=== PATIENT | male | born 1945 | race Hispanic/Latino ===

== ENCOUNTER → 2017-09-11 | Day surgery (SDC) | payer MEDICARE ==
[2017-09-06 12:08] LABS: BASOPHILS # (AUTO) 0.1 (0.0-0.1); EOSINOPHILS # (AUTO) 0.3 (0.0-0.4); EOSINOPHILS % 3.4 % (0.0-6.0); LYMPHOCYTES # (AUTO) 2.5 (1.0-3.2); LYMPHOCYTES % 33.1 % (18.0-39.1); MEAN CORPUSCULAR HEMOGLOBIN 31.5 pg (28-32); MEAN CORPUSCULAR VOLUME 92.8 fL (81-99); MONOCYTES # (AUTO) 0.7 (0.2-0.8); MONOCYTES % 8.6 % (4.4-11.3); NEUTROPHILS # (AUTO) 4.1 (2.1-6.9); NEUTROPHILS % 53.8 % (38.7-80.0); PLATELET COUNT 234 x10e3/uL (140-360); RED BLOOD COUNT 5.39 x10e6/uL (4.3-5.7); RED CELL DISTRIBUTION WIDTH 13.1 % (11.7-14.4)
[2017-09-06 12:26] LABS: ANION GAP 16.2 mmol/L (8-16); BLOOD UREA NITROGEN 15 mg/dL (7-26); BUN/CREATININE RATIO 16 (6-25); CALCIUM 9.2 mg/dL (8.4-10.2); CARBON DIOXIDE 22 mmol/L (22-29); CHLORIDE 102 mmol/L (98-107); CREATININE, SERUM 0.92 mg/dL (0.72-1.25); EST GLOMERULAR FILTRATION RATE > 60 ML/MIN (60-); GLUCOSE 101 mg/dL (74-118); POTASSIUM 4.2 mmol/L (3.5-5.1); SODIUM 136 mmol/L (136-145)
--- NOTE | 2017-09-06 13:09 | Diagnostic Imaging Report ---
PROCEDURE: Frontal and lateral views of the chest. COMPARISON: 12/19/09 INDICATIONS: PREOPERATIVE CHEST XRAY FOR RIGHT ARM SURGERY FINDINGS: Lines/tubes: None. Lungs: Low lung volumes. There is no evidence of pneumonia or pulmonary edema. Pleura: There is no pleural effusion or pneumothorax. Heart and mediastinum: The heart and the mediastinum are normal. Prominent cardiac fat-pad. Bones: No acute bony abnormality. Degenerative changes of thoracic spine. IMPRESSION: 1. No acute cardiopulmonary disease. Dictated by: Aureliano Plata M.D. on 09/06/2017 at 13:18 Electronically approved by: Aureliano Plata M.D. on 09/06/2017 at 13:18
[~2017-09-11] MED LIST: BUPIVACAINE 0.25% 30ML SDV INJ ONE; CYMBALTA30 MG PO; DEXAMETHASONE SOD PHOS INJ 4 MG/ML VIAL ONE; DIOVAN160 MG PO; FENTANYL CITRATE/PF 100MCG/2 ML INJ ONE; FLOMAX0.4 MG PO; HYDROCHLOROTHIA25 MG PO; LIDOCAINE HCL 1% 30ML-PF VIAL ONE; LIDOCAINE HCL 2% LOCAL INJ 5 ML SDV VIAL INJ ONE; ONDANSETRON HCL INJ 2 MG/ML VIAL ONE; PROPOFOL IV EMULSION 10 MG/ML 20 ML VIAL ONE; SEVOFLURANE INHAL SOLN 250 ML PEN BTL ONE; XARELTO20 MG PO
--- OUTSIDE RECORDS SUMMARY | 2017-09-11 07:04 | XMS REPORT ---
Author Author [facility] Address Unknown Phone Unavailable Care Team Providers Care Dispensing Optician Name Role Phone JAZIEL CARBAJAL Unavailable Unavailable Problems This patient has no known problems. Allergies, Adverse Reactions, Alerts This patient has no known allergies or adverse reactions. Medications This patient has no known medications. Results Test Description Test Time Test Comments Text Results Atomic Results Result Comments CHEST 2 VIEWS [place] [address] Patient Name: FÉLIX ROSARIO MR #: [id number] : 1945 Age/Sex: 72/M Req #: [id number] Adm Physician: Ordered by: JAZIEL CARBAJAL MD Report #: [id number] Location: OR Room/Bed: Procedure: [id number] DX/CHEST 2 VIEWS Exam Date: 09/06/17 Exam Time: 1245 REPORT STATUS: Signed PROCEDURE: Frontal and lateral views of the chest. COMPARISON: 12/19/09 INDICATIONS: PREOPERATIVE CHEST XRAY FOR RIGHT ARM SURGERY FINDINGS: Lines/tubes: None. Lungs : Low lung volumes. There is no evidence of pneumonia or pulmonary edema. Pleura: There is no pleural effusion or pneumothorax. Heart and mediastinum: The heart and the mediastinum are normal. Prominent cardiac fat -pad. Bones: No acute bony abnormality. Degenerative changes of thoracic spine. IMPRESSION: 1. No acute cardiopulmonary disease. Dictated by: Aureliano Plata M.D. on 09/06/2017 at 13:18 Electronically approved by: Aureliano Plata M.D. on 09/06/2017 at 13:18 Dictated By: AURELIANO PLATA MD [id number] COPY TO: JAZIEL CARBAJAL MD
--- NOTE | 2017-09-11 10:17 | Operative Report ---
DATE OF PROCEDURE: September 11, 2017 PREOPERATIVE DIAGNOSIS: Mass of the right upper arm. POSTOPERATIVE DIAGNOSIS: Mass of the right upper arm. OPERATION PERFORMED: Excision of mass of right upper arm. ANESTHESIA: General. COMPLICATIONS: None. ESTIMATED BLOOD LOSS: Minimal. DESCRIPTION OF PROCEDURE: With the patient lying in bed in the supine position under good general anesthesia, the right arm was prepped with Betadine solution and draped in the usual manner. The area overlying the mass on the lateral aspect of the right midupper arm was then infiltrated with 0.25% Marcaine solution. An incision was made. It was carried down through the subcutaneous tissue and through the superficial fascia. Immediately, a lipomatous type mass was encountered, which was slowly and carefully from all of the surrounding structures. The mass was stuck to the muscle underneath. This was from the muscle and completely resected, and sent for pathological examination. The whole area was thoroughly irrigated. Perfect hemostasis was ascertained. Subcutaneous tissue was then reapproximated with interrupted sutures of 3-0 Vicryl, and the skin was closed with interrupted vertical mattress sutures of 3-0 silk. A dressing was applied. The sponge, lap and needle count was correct. The patient tolerated the procedure well, and returned to the recovery room in stable condition. Job#: [id number] NICO
== END | disposition home or self-care (01) ==
LOC: OR 07:01
PROVIDERS: ATTEND Surgery
DX: D17.79 Benign lipomatous neoplasm of other sites (principal); I10 Essential (primary) hypertension; E66.01 Morbid (severe) obesity due to excess calories; Z01.810 Encounter for preprocedural cardiovascular examination; Z01.812 Encounter for preprocedural laboratory examination; Z01.818 Encounter for other preprocedural examination; Z79.02 Long term (current) use of antithrombotics/antiplatelets; Z86.718 Personal history of other venous thrombosis and embolism
CPT/HCPCS: 24076; 36415; 71046; 80048; 85025; 88304; 93005; J1100; J2001; J2405

== ENCOUNTER → 2018-10-15 | Outpatient (CLI) | payer MEDICARE ==
[~2018-10-15] MED LIST changes: +ACETAMINOPHEN 1000 MG/100 ML IV PRN; +BACITRACIN 50,000 UNIT VIAL ONE; -BUPIVACAINE 0.25% 30ML SDV INJ ONE; +CEFAZOLIN SOD 1 GM/NS 50ML 50 ML IV SCH; +CEFAZOLIN SOD 2 GM/D5W 50ML 50 ML IV ONE; -DEXAMETHASONE SOD PHOS INJ 4 MG/ML VIAL ONE; +DIPHENHYDRAMINE HCL INJ 50 MG/ML VIAL IM/IV PRN; -FENTANYL CITRATE/PF 100MCG/2 ML INJ ONE; +HYDROMORPHONE 0.2MG/ML-SOD CHL 30ML PCA SYRINGE IV PRN; +LEVOCETIRIZINE D5 MG PO; -LIDOCAINE HCL 1% 30ML-PF VIAL ONE; -LIDOCAINE HCL 2% LOCAL INJ 5 ML SDV VIAL INJ ONE; +NALOXONE HCL INJ 0.4 MG/ML AMP IV PRN; -ONDANSETRON HCL INJ 2 MG/ML VIAL ONE; +ONDANSETRON HCL INJ 2MG/ML 2ML 2 MG/ML VIAL IV PRN; +PANTOPRAZOLE SO40 MG PO; -PROPOFOL IV EMULSION 10 MG/ML 20 ML VIAL ONE; +RIVAROXABAN 10 MG TABLET PO SCH; -SEVOFLURANE INHAL SOLN 250 ML PEN BTL ONE; +SODIUM CHLORIDE 0.9% 1000ML 1,000 ML IV SCH
[2018-10-15 11:03] LABS: BASOPHILS % 0.6 % (0.0-1.0); EOSINOPHILS # (AUTO) 0.2 (0.0-0.4); EOSINOPHILS % 3.2 % (0.0-6.0); HEMATOCRIT 48.7 % (38.2-49.6); HEMOGLOBIN 16.5 g/dL (14.0-18.0); LYMPHOCYTES # (AUTO) 2.3 (1.0-3.2); MEAN CORPUSCULAR HEMOGLOBIN 30.8 pg (28-32); MEAN CORPUSCULAR HGB CONC 33.9 g/dL (31-35); MONOCYTES # (AUTO) 0.5 (0.2-0.8); MONOCYTES % 8.2 % (4.4-11.3); NEUTROPHILS # (AUTO) 3.4 (2.1-6.9); NEUTROPHILS % 51.8 % (38.7-80.0); PLATELET COUNT 225 x10e3/uL (140-360); RED BLOOD COUNT 5.35 x10e6/uL (4.3-5.7); RED CELL DISTRIBUTION WIDTH 14.3 % (11.7-14.4)
[2018-10-15 11:18] LABS: BLOOD UREA NITROGEN 12 mg/dL (7-26); BUN/CREATININE RATIO 11 (6-25); CALCIUM 8.9 mg/dL (8.4-10.2); CARBON DIOXIDE 27 mmol/L (22-29); CHLORIDE 101 mmol/L (98-107); CREATININE, SERUM 1.09 mg/dL (0.72-1.25); EST GLOMERULAR FILTRATION RATE > 60 ML/MIN (60-); GLUCOSE 112 mg/dL (74-118); SODIUM 136 mmol/L (136-145)
[2018-10-15 12:17] LABS: BILIRUBIN,URINE NEGATIVE (NEGATIVE); CLARITY,URINE CLEAR (CLEAR); COLOR,URINE YELLOW (YELLOW); KETONES,URINE NEGATIVE (NEGATIVE); LEUKOCYTE ESTERASE ,URINE NEGATIVE (NEGATIVE); NITRITE,URINE NEGATIVE (NEGATIVE); PROTEIN,URINE DIPSTICK NEGATIVE (NEGATIVE); URINE UROBILINOGEN 0.2 mg/dL (0.2 - 1)
--- NOTE | 2018-10-15 12:32 | Diagnostic Imaging Report ---
EXAM: CHEST 2 VIEWS, PA and lateral DATE: 10/15/2018 Time stamp on exam: 11:02 AM INDICATION: Preoperative COMPARISON: None FINDINGS: LINES/TUBES: None LUNGS: Poor inspiration. Bibasilar opacities appear compatible with atelectasis. PLEURA: No effusions or pneumothorax. HEART AND MEDIASTINUM: Normal size and contour. BONES AND SOFT TISSUES: No acute findings. Degenerative changes of the spine. IMPRESSION: No acute thoracic abnormality. Signed by: Dr. Oscar Fernando DO on 10/15/2018 12:28 PM
--- OUTSIDE RECORDS SUMMARY | 2018-10-16 10:03 | XMS REPORT ---
Author Author Nigel Gonzalez Organization [employer] Address Unknown Phone Unavailable Care Team Providers Care Electron Beam Welder Name Role Phone Nigel Gonzalez CP Unavailable Allergies No Known Allergies Problems Problem Type Condition Code Onset Dates Condition Status Problem Knee pain M25.569 Active Problem Muscle spasm M62.838 Active Problem Right elbow pain M25.521 Active Problem Gluteal tendinitis, left hip M76.02 Active Problem Sciatica of left side M54.32 Active Problem Rotator cuff arthropathy M12.819 Active Problem Polyarthritis M13.0 Active Problem Osteoarthritis M19.90 Active Problem Shoulder pain, right M25.511 Active Medications No Known Medications Results No Known Results Summary Purpose [employer] Submission
--- OUTSIDE RECORDS SUMMARY | 2018-10-16 10:03 | XMS REPORT ---
Author Author Nigel Gonzalez Organization [employer] Address Unknown Phone Unavailable Care Team Providers Care Mechanical Assembly Name Role Phone Nigel Gonzalez CP Unavailable [...]
--- OUTSIDE RECORDS SUMMARY | 2018-10-16 10:03 | XMS REPORT ---
Author Author Nigel Gonzalez Organization [employer] Address Unknown Phone Unavailable Care Team Providers Care Cotton Tier Name Role Phone Nigel Gonzalez CP Unavailable [...]
--- OUTSIDE RECORDS SUMMARY | 2018-10-16 10:03 | XMS REPORT ---
Author Author Princess De Jesus [facility] [employer] Address Unknown Phone Unavailable Care Team Providers Care Truck Repair Supervisor Name Role Phone Princess De Jesus Unavailable Allergies, Adverse Reactions, Alerts Substance Reaction Event Type N.K.D.A. Info Not Available Non Drug Allergy Problems Problem Type Condition Code Onset Dates Condition Status Assessment Polyarthritis M13.0 Active Problem Knee pain M25.569 Active Problem Muscle spasm M62.838 Active Assessment Right elbow pain M25.521 Active Problem Right elbow pain M25.521 Active Problem Gluteal tendinitis, left hip M76.02 Active Problem Sciatica of left side M54.32 Active Problem Rotator cuff arthropathy M12.819 Active Problem Polyarthritis M13.0 Active Problem Osteoarthritis M19.90 Active Problem Shoulder pain, right M25.511 Active Medications Medication Code System Code Instructions Start Date End Date Status Dosage Cymbalta [facility] [address]-32 60 MG Orally Once a day Active 1 capsule Tylenol Arthritis Pain [facility] [address]-98 650 MG Orally PRN Active 2 tablets as needed Aspirin [facility] [address]-31 81 MG Orally Once a day Active 1 tablet Valsartan-Hydrochlorothiazide [facility] [address]-42 160-12.5 MG Orally Once a day Active 1 tablet Acetaminophen-Codeine [facility] [address]-26 300-60 MG Orally every 6 hrs prn for pain Active 1 tablet as needed Xarelto [facility] [address]-10 20 MG Orally Once a day Active 1 tablet with food Cyclobenzaprine HCl [facility] [address]-24 10 MG Orally PRN Active 1 tablet as needed Tamsulosin HCl [facility] [address]-05 0.4 MG Orally Active as directed Vital Signs Date/Time: January 12, 2017 BMI 34.97 Index Weight 230 lbs Height 68 in Temperature 98.6 F Cardiac Monitoring Heart Rate 78 /min Blood Pressure Diastolic 90 mm Hg Blood Pressure Systolic 118 mm Hg Results No Known Results Summary Purpose [employer] Submission
--- OUTSIDE RECORDS SUMMARY | 2018-10-16 10:03 | XMS REPORT ---
Author Author Nigel Gonzalez Organization [employer] Address Unknown Phone Unavailable Care Team Providers Care Clinical Research Monitor Name Role Phone Nigel Gonzalez CP Unavailable [...]
--- OUTSIDE RECORDS SUMMARY | 2018-10-16 10:03 | XMS REPORT ---
Author Author Nigel Gonzalez Organization [employer] Address Unknown Phone Unavailable Care Team Providers Care Medical Claims Representative Name Role Phone Nigel Gonzalez CP Unavailable [...]
--- OUTSIDE RECORDS SUMMARY | 2018-10-16 10:03 | XMS REPORT ---
Author Nigel Rea [facility] [employer] Address Unknown Phone Unavailable Care Team Providers Care Counseling Center Manager Name Role Phone Nigel Gonzalez CP Unavailable Allergies, Adverse Reactions, Alerts Substance Reaction Event Type N.K.D.A. Info Not Available Non Drug Allergy Problems Problem Type Condition Code Onset Dates Condition Status Assessment Sciatica of left side M54.32 Active Problem Knee pain M25.569 Active Problem Muscle spasm M62.838 Active Problem Right elbow pain M25.521 Active Problem Gluteal tendinitis, left hip M76.02 Active Problem Sciatica of left side M54.32 Active Problem Rotator cuff arthropathy M12.819 Active Problem Polyarthritis M13.0 Active Problem Osteoarthritis M19.90 Active Problem Shoulder pain, right M25.511 Active Medications Medication Code System Code Instructions Start Date End Date Status Dosage Aspirin [facility] [address]-38 81 MG Orally Once a day Active 1 tablet Tylenol Arthritis Pain [facility] [address]-12 650 MG Orally PRN Active 2 tablets as needed Xarelto [facility] [address]-98 20 MG Orally Once a day Active 1 tablet with food Prednisone Taper [facility] 3729-1660-05 5mg orally q am with food December 02, 2016 December 17, 2016 Active 3 tablets for 5 days, 2 tablets for 5 days and then 1 tablet for 5 days Valsartan-Hydrochlorothiazide [facility] [address]-84 160-12.5 MG Orally Once a day Active 1 tablet Cyclobenzaprine HCl [facility] [address]-52 10 MG Orally tid prn for muscle spasms December 02, 2016 January 31, 2017 Active 1 tablet as needed Cymbalta [facility] [address]-67 60 MG Orally Once a day Active 1 capsule Acetaminophen-Codeine [facility] [address]-85 300-60 MG Orally every 6 hrs prn for pain Active 1 tablet as needed Tamsulosin HCl [facility] [address]-00 0.4 MG Orally Active as directed Vital Signs Date/Time: December 02, 2016 BMI 35.35 Index Weight 225.7 lbs Height 67 in Temperature 98.6 F Cardiac Monitoring Heart Rate 80 /min Blood Pressure Diastolic 80 mm Hg Blood Pressure Systolic 124 mm Hg Results No Known Results Summary Purpose [employer] Submission
--- OUTSIDE RECORDS SUMMARY | 2018-10-16 10:03 | XMS REPORT | Continuity of Care Document ---
Author Author [facility] Address Unknown Phone Unavailable Problems Problem Status Onset Date Classification Date Reported Comments Source Muscle spasm Active Problem 01/27/2017 Corbin Gonzalez Gluteal tendinitis, left hip Active Problem 01/27/2017 Corbin Gonzalez Osteoarthritis Active Problem 01/27/2017 Corbin Gonzalez Right elbow pain Active Problem 01/27/2017 Corbin Gonzalez Polyarthritis Active Problem 01/27/2017 Corbin Gonzalez Knee pain Active Problem 01/27/2017 Corbin Gonzalez Shoulder pain, right Active Problem 01/27/2017 Corbin Guptaer Rotator cuff arthropathy Active Problem 01/27/2017 Corbin Guptaer Sciatica of left side Active Problem 01/27/2017 Corbin Gonzalez Medications Medication Details Route Status Patient Instructions Ordering Provider Order Date Source Prednisone Taper 3 tablets for 5 days, 2 tablets for 5 days and then 1 tablet for 5 days orally Active 5mg orally q am with food [place] 12/02/2016 Corbin Gonzalez Cyclobenzaprine HCl 1 tablet as needed Orally Active 10 MG Orally tid prn for muscle spasms [place] 12/02/2016 Corbin Gonzalez Acetaminophen-Codeine 1 tablet as needed Orally Active 300-60 MG Orally every 6 hrs prn for pain [place] 07/28/2016 Corbin Gonzalez Medrol Dose [place] as directed Orally Active 4mg Orally once a day [place] 07/28/2016 Corbin Gonzalez Acetaminophen-Codeine 1 tablet as needed Orally Active 300-60 MG Orally every 6 hrs prn for pain [place] Corbin Gonzalez Xarelto 1 tablet with food Orally Active 20 MG Orally Once a day [place] Corbin Gonzalez Valsartan-Hydrochlorothiazide 1 tablet Orally Active 160-12.5 MG Orally Once a day [place] Corbin Gonzalez Cymbalta 1 capsule Orally Active 60 MG Orally Once a day [place] Corbin Gonzalez Tylenol Arthritis Pain 2 tablets as needed Orally Active 650 MG Orally PRN [place] Corbin Gonzalez Aspirin 1 tablet Orally Active 81 MG Orally Once a day [place] Corbin Gonzalez Tamsulosin HCl as directed Orally Active 0.4 MG Orally [place] Corbin Gonzalez Cyclobenzaprine HCl 1 tablet as needed Orally Active 10 MG Orally PRN [place] Corbin Guptaer Allergies, Adverse Reactions, Alerts Substance Category Reaction Severity Reaction type Status Date Reported Comments Source N.K.D.A. Adverse Reaction Info Not Available Adverse Reaction Active 01/12/2017 Corbin Guptaer Immunizations Immunization Date Given Site Status Last Updated Comments Source Results Order Name Results Value Reference Range Date Interpretation Comments Source Vital Signs Vital Sign Value Date Comments Source Weight 230 01/12/2017 Corbin Gonzalez Height 68 01/12/2017 Corbin Gonzalez Temperature Oral (F) 98.6 F 01/12/2017 Corbin Gonzalez Heart Rate 78 01/12/2017 Corbin Gonzalez Diastolic (mm Hg) 90 01/12/2017 Corbin Gonzalez Systolic (mm Hg) 118 01/12/2017 Corbin Gonzalez Weight 229 01/06/2017 Corbin Gonzalez Height 68 01/06/2017 Corbin Gonzalez Temperature Oral (F) 98.7 F 01/06/2017 Corbin Gonzalez Heart Rate 80 01/06/2017 Corbin Gonzalez Diastolic (mm Hg) 80 01/06/2017 Corbin Gonzalez Systolic (mm Hg) 126 01/06/2017 Corbin Gonzalez Weight 225.7 12/02/2016 Corbin Gonzalez Height 67 12/02/2016 Corbin Gonzalez Temperature Oral (F) 98.6 F 12/02/2016 Corbin Gonzalez Heart Rate 80 12/02/2016 Corbin Gonzalez Diastolic (mm Hg) 80 12/02/2016 Corbin Gonzalez Systolic (mm Hg) 124 12/02/2016 Corbin Gonzalez Weight 225 10/03/2016 Corbin Gonzalez Height 67 10/03/2016 Corbin Gonzalez Temperature Oral (F) 97.5 F 10/03/2016 Corbin Gonzalez Heart Rate 76 10/03/2016 Corbin Gonzalez Diastolic (mm Hg) 64 10/03/2016 Corbin Gonzalez Systolic (mm Hg) 122 10/03/2016 Corbin Gonzalez Weight 227 09/27/2016 Corbin Gonzalez Height 67 09/27/2016 Corbin Gonzalez Temperature Oral (F) 98.0 F 09/27/2016 Corbin Gonzalez Heart Rate 70 09/27/2016 Corbin Gonzalez Diastolic (mm Hg) 80 09/27/2016 Corbin Gonzalez Systolic (mm Hg) 132 09/27/2016 Corbin Gonzalez Weight 225 08/08/2016 Corbin Gonzalez Height 68 08/08/2016 Corbin Gonzalez Temperature Oral (F) 97.6 F 08/08/2016 Corbin Gonzalez Heart Rate 72 08/08/2016 Corbin Gonzalez Diastolic (mm Hg) 72 08/08/2016 Corbin Gonzalez Systolic (mm Hg) 132 08/08/2016 Corbin Gonzalez Weight 226 07/28/2016 Corbin Gonzalez Height 68 07/28/2016 Corbin Gonzalez Temperature Oral (F) 98.6 F 07/28/2016 Corbin Gonzalez Heart Rate 72 07/28/2016 Corbin Gonzalez Diastolic (mm Hg) 98 07/28/2016 Corbin Gonzalez Systolic (mm Hg) 138 07/28/2016 Corbin Gonzalez Encounters Location Location Details Encounter Type Encounter Number Reason For Visit Attending Provider ADM Date DC Date Status Source Nigel Gonzalez MD PT IN PAIN [id number] 07/28/2016 07/28/2016 Corbin Gonzalez MD PT IN PAIN [id number] 07/28/2016 07/28/2016 Corbin Gonzalez MD PT IN PAIN [id number] 07/28/2016 07/28/2016 Corbin Gonzalez MD PT IN PAIN [id number] 07/28/2016 07/28/2016 Corbin Gonzalez MD VERIFY FOR 100 DEPO [id number] 07/28/2016 07/28/2016 Corbin Gonzalez MD VERIFY FOR 100 DEPO [id number] 07/28/2016 07/28/2016 Corbin Gonzalez MD VERIFY FOR 100 DEPO [id number] 07/28/2016 07/28/2016 Corbin Goznalez MD VERIFY FOR 100 DEPO [id number] 07/28/2016 07/28/2016 Corbin Gonzalez MD VERIFY FOR 100 DEPO [id number] 07/28/2016 07/28/2016 Corbin Gonzalez MD STILL HAVING PAIN ON ARM [id number] 08/02/2016 08/02/2016 Corbin Gonzalez MD STILL HAVING PAIN ON ARM [id number] 08/02/2016 08/02/2016 Corbin Gonzalez MD STILL HAVING PAIN ON ARM [id number] 08/02/2016 08/02/2016 Corbin Gonzalez MD RIGHT SHOULDER INJ [id number] 08/08/2016 08/08/2016 Corbin Gonzalez MD RIGHT SHOULDER INJ [id number] 08/08/2016 08/08/2016 Cobrin Gonzalez MD Inj 10/03- Waiting on auth [id number] 09/27/2016 09/27/2016 Corbin Gonzalez Procedures Procedure Code Date Perfomer Comments Source
--- OUTSIDE RECORDS SUMMARY | 2018-10-16 10:03 | XMS REPORT ---
Author Nigel Rea [facility] [employer] Address Unknown Phone Unavailable Care Team Providers Care Dust Handler Name Role Phone Nigel Gonzalez Unavailable Allergies, Adverse Reactions, Alerts Substance Reaction Event Type N.K.D.A. Info Not Available Non Drug Allergy Encounters Encounter Location Date VERIFY FOR 100 DEPO Nigel Gonzalez MD Jul 28, 2016 PT IN PAIN Nigel Gonzalez MD Jul 28, 2016 Problems Problem Type Condition ICD-9 Code Onset Dates Condition Status Assessment Polyarthritis M13.0 Active Assessment Osteoarthritis M19.90 Active Problem Osteoarthritis M19.90 Active Problem Shoulder pain, right M25.511 Active Problem Right elbow pain M25.521 Active Problem Knee pain M25.569 Active Assessment Right elbow pain M25.521 Active Problem Rotator cuff arthropathy M12.819 Active Problem Polyarthritis M13.0 Active Medications Medication Code System Code Instructions Start Date End Date Status Dosage Cymbalta [facility] [address]-04 60 MG Orally Once a day Active 1 capsule Tylenol Arthritis Pain [facility] [address]-20 650 MG Orally PRN Active 2 tablets as needed Tamsulosin HCl [facility] [address]-97 0.4 MG Orally Active as directed Valsartan-Hydrochlorothiazide [facility] [address]-99 160-12.5 MG Orally Once a day Active 1 tablet Acetaminophen-Codeine [facility] [address]-31 300-60 MG Orally every 6 hrs prn for pain Jul 28, 2016 Sep 26, 2016 Active 1 tablet as needed Medrol Dose [place] [facility] 27647571671 4mg Orally once a day Jul 28, 2016 Active as directed Xarelto [facility] [address]-79 20 MG Orally Once a day Active 1 tablet with food Aspirin [facility] [address]-76 81 MG Orally Once a day Active 1 tablet Social History Social History Element Qualifiers Date Reported Diet: no. Jul 28, 2016 Tobacco Use: . Are you a:: former smoker , How long has it been since you last smoked?: > 10 years Jul 28, 2016 Marital Status: . Jul 28, 2016 Caffeine: yes. 1-5, cups/day Jul 28, 2016 Exercise: no. Jul 28, 2016 Alcohol: socially. 2-3 week Jul 28, 2016 Occupation: . retired Jul 28, 2016 Vital Signs Date/Time: Jul 28, 2016 Weight 226 lbs Height 68 in Temperature 98.6 F Cardiac Monitoring Heart Rate 72 /min Blood Pressure Diastolic 98 mm Hg Blood Pressure Systolic 138 mm Hg Summary Purpose eClinicalWorks Submission
--- OUTSIDE RECORDS SUMMARY | 2018-10-16 10:03 | XMS REPORT ---
Author Author Nigel Gonzalez Organization [employer] Address Unknown Phone Unavailable Care Team Providers Care Labor Delivery Specialist Name Role Phone Nigel Gonzalez CP Unavailable [...]
--- OUTSIDE RECORDS SUMMARY | 2018-10-16 10:03 | XMS REPORT ---
Author Nigel Rea [facility] [employer] Address Unknown Phone Unavailable Care Team Providers Care Highway Engineer Name Role Phone Nigel Gonzalez CP Unavailable Allergies, Adverse Reactions, Alerts Substance Reaction Event Type N.K.D.A. Info Not Available Non Drug Allergy Problems Problem Type Condition Code Onset Dates Condition Status Assessment Knee pain M25.569 Active Problem Knee pain M25.569 Active Problem Muscle spasm M62.838 Active Problem Right elbow pain M25.521 Active Problem Gluteal tendinitis, left hip M76.02 Active Problem Sciatica of left side M54.32 Active Problem Rotator cuff arthropathy M12.819 Active Problem Polyarthritis M13.0 Active Problem Osteoarthritis M19.90 Active Problem Shoulder pain, right M25.511 Active Assessment Osteoarthritis M19.90 Active Assessment Right elbow pain M25.521 Active Assessment Sciatica of left side M54.32 Active Medications Medication Code System Code Instructions Start Date End Date Status Dosage Tamsulosin HCl [facility] [address]-22 0.4 MG Orally Active as directed Cymbalta [facility] [address]-80 60 MG Orally Once a day Active 1 capsule Cyclobenzaprine HCl [facility] [address]-44 10 MG Orally PRN Active 1 tablet as needed Acetaminophen-Codeine [facility] [address]-05 300-60 MG Orally every 6 hrs prn for pain Active 1 tablet as needed Aspirin [facility] [address]-04 81 MG Orally Once a day Active 1 tablet Valsartan-Hydrochlorothiazide [facility] [address]-55 160-12.5 MG Orally Once a day Active 1 tablet Tylenol Arthritis Pain [facility] [address]-36 650 MG Orally PRN Active 2 tablets as needed Xarelto [facility] [address]-98 20 MG Orally Once a day Active 1 tablet with food Vital Signs Date/Time: January 06, 2017 BMI 34.82 Index Weight 229 lbs Height 68 in Temperature 98.7 F Cardiac Monitoring Heart Rate 80 /min Blood Pressure Diastolic 80 mm Hg Blood Pressure Systolic 126 mm Hg Results No Known Results Summary Purpose [employer]Works Submission
--- OUTSIDE RECORDS SUMMARY | 2018-10-16 10:03 | XMS REPORT ---
Author Author Nigel Gonzalez Organization [employer] Address Unknown Phone Unavailable Care Team Providers Care Fibre Optic Cable Splicer Name Role Phone Nigel Gonzalez CP Unavailable [...]
--- OUTSIDE RECORDS SUMMARY | 2018-10-16 10:03 | XMS REPORT ---
Author Author Nigel Gonzalez Organization [employer] Address Unknown Phone Unavailable Care Team Providers Care Coordinator Of Evaluation Name Role Phone Nigel Gonzalez CP Unavailable [...]
--- OUTSIDE RECORDS SUMMARY | 2018-10-16 10:04 | XMS REPORT ---
Author Nigel Rea [facility] [employer] Address Unknown Phone Unavailable Care Team Providers Care Volunteer Firefighter Name Role Phone Nigel Gonzalez Unavailable Encounters Encounter Location Date RIGHT SHOULDER INJ Nigel Gonzalez MD Aug 08, 2016 Inj 3/6-Waiting on auth Nigel Gonzalez MD Sep 27, 2016 VERIFY FOR 100 DEPO Nigel Gonzalez MD Jul 28, 2016 PT IN PAIN Nigel Gonzalez MD Jul 28, 2016 STILL HAVING PAIN ON ARM Nigel Gonzalez MD Aug 02, 2016 Problems Problem Type Condition ICD-9 Code Onset Dates Condition Status Problem Muscle spasm M62.838 Active Problem Gluteal tendinitis, left hip M76.02 Active Problem Osteoarthritis M19.90 Active Problem Right elbow pain M25.521 Active Problem Polyarthritis M13.0 Active Problem Knee pain M25.569 Active Problem Shoulder pain, right M25.511 Active Problem Rotator cuff arthropathy M12.819 Active Social History Social History Element Qualifiers Date Reported Diet: no. Sep 27, 2016 Tobacco Use: . Are you a:: former smoker , How long has it been since you last smoked?: > 10 years Sep 27, 2016 Marital Status: . Sep 27, 2016 Caffeine: yes. 1-5, cups/day Sep 27, 2016 Exercise: no. Sep 27, 2016 Alcohol: socially. 2-3 week Sep 27, 2016 Occupation: . retired Sep 27, 2016 Summary Purpose eClinicalWorks Submission
--- OUTSIDE RECORDS SUMMARY | 2018-10-16 10:04 | XMS REPORT ---
Author Author Nigel Gonzalez [facility] eClinicalWorks Address Unknown Phone Unavailable Care Team Providers Care Sales Consultant Name Role Phone Nigel Gonzalez Unavailable Encounters Encounter Location Date VERIFY FOR 100 DEPO Nigel Gonzalez MD Jul 28, 2016 Problems Problem Type Condition ICD-9 Code Onset Dates Condition Status Problem Osteoarthritis M19.90 Active Problem Shoulder pain, right M25.511 Active Problem Right elbow pain M25.521 Active Problem Knee pain M25.569 Active Problem Rotator cuff arthropathy M12.819 Active Problem Polyarthritis M13.0 Active Social History Social History Element Qualifiers [...] 2016 Occupation: . retired Jul 28, 2016 Summary Purpose eClinicalWorks Submission
--- OUTSIDE RECORDS SUMMARY | 2018-10-16 10:04 | XMS REPORT ---
Author Author Nigel Gonzalez Organization eClinicalWorks Address Unknown Phone Unavailable Care Team Providers Care Franchise Development Manager Name Role Phone Nigel Gonzalez CP Unavailable Allergies No Known Allergies Problems Problem Type Condition Code Onset Dates Condition Status Problem Muscle spasm M62.838 Active Problem Gluteal tendinitis, left hip M76.02 Active Problem Osteoarthritis M19.90 Active Problem Right elbow pain M25.521 Active Problem Polyarthritis M13.0 Active Problem Knee pain M25.569 Active Problem Shoulder pain, right M25.511 Active Problem Rotator cuff arthropathy M12.819 Active Medications No Known Medications Results No Known Results Summary Purpose eClinicalWorks Submission
--- OUTSIDE RECORDS SUMMARY | 2018-10-16 10:04 | XMS REPORT ---
Author Author Richard Jaramillo Organization eClinicalWorks Address Unknown Phone Unavailable Care Team Providers Care Plastic Surgery Nurse Name Role Phone Ella, Richard CP Unavailable Allergies, Adverse Reactions, Alerts Substance Reaction Event Type N.K.D.A. Info Not Available Non Drug Allergy Problems Problem Type Condition Code Onset Dates Condition Status Assessment Muscle spasm M62.838 Active Problem Muscle spasm M62.838 Active Assessment Gluteal tendinitis, left hip M76.02 Active Assessment Osteoarthritis M19.90 Active Problem Gluteal tendinitis, left hip M76.02 Active Problem Osteoarthritis M19.90 Active Problem Right elbow pain M25.521 Active Problem Polyarthritis M13.0 Active Problem Knee pain M25.569 Active Problem Shoulder pain, right M25.511 Active Problem Rotator cuff arthropathy M12.819 Active Medications Medication Code System Code Instructions Start Date End Date Status Dosage Acetaminophen-Codeine [facility] [address]-97 300-60 MG Orally every 6 hrs prn for pain Active 1 tablet as needed Xarelto [facility] [address]-80 20 MG Orally Once a day Active 1 tablet with food Valsartan-Hydrochlorothiazide [facility] [address]-37 160-12.5 MG Orally Once a day Active 1 tablet Cymbalta [facility] [address]-90 60 MG Orally Once a day Active 1 capsule Tylenol Arthritis Pain [facility] [address]-18 650 MG Orally PRN Active 2 tablets as needed Aspirin [facility] [address]-32 81 MG Orally Once a day Active 1 tablet Tamsulosin HCl [facility] [address]-74 0.4 MG Orally Active as directed Vital Signs Date/Time: Sep 27, 2016 BMI 35.55 Index Weight 227 lbs Height 67 in Temperature 98.0 F Cardiac Monitoring Heart Rate 70 /min Blood Pressure Diastolic 80 mm Hg Blood Pressure Systolic 132 mm Hg Results No Known Results Summary Purpose eClinicalWorks Submission
--- OUTSIDE RECORDS SUMMARY | 2018-10-16 10:04 | XMS REPORT ---
Author Author Richard Jaramillo Organization eClinicalWorks Address Unknown Phone Unavailable Care Team Providers Care Agricultural Extension Educator Name Role Phone Ella, Richard CP Unavailable Allergies, Adverse Reactions, Alerts Substance Reaction Event Type N.K.D.A. Info Not Available Non Drug Allergy Problems Problem Type Condition Code Onset Dates Condition Status Assessment Muscle spasm M62.838 Active Problem Muscle spasm M62.838 Active Assessment Gluteal tendinitis, left hip M76.02 Active Problem Gluteal tendinitis, left hip M76.02 Active Problem Osteoarthritis M19.90 Active Problem Right elbow pain M25.521 Active Problem Polyarthritis M13.0 Active Problem Knee pain M25.569 Active Problem Shoulder pain, right M25.511 Active Problem Rotator cuff arthropathy M12.819 Active Medications Medication Code System Code Instructions Start Date End Date Status Dosage Aspirin [facility] [address]-66 81 MG Orally Once a day Active 1 tablet Tamsulosin HCl [facility] [address]-06 0.4 MG Orally Active as directed Tylenol Arthritis Pain [facility] [address]-79 650 MG Orally PRN Active 2 tablets as needed Cymbalta [facility] [address]-79 60 MG Orally Once a day Active 1 capsule Valsartan-Hydrochlorothiazide [facility] [address]-11 160-12.5 MG Orally Once a day Active 1 tablet Acetaminophen-Codeine [facility] [address]-43 300-60 MG Orally every 6 hrs prn for pain Active 1 tablet as needed Xarelto [facility] [address]-39 20 MG Orally Once a day Active 1 tablet with food Vital Signs Date/Time: October 03, 2016 BMI 35.24 Index Weight 225 lbs Height 67 in Temperature 97.5 F Cardiac Monitoring Heart Rate 76 /min Blood Pressure Diastolic 64 mm Hg Blood Pressure Systolic 122 mm Hg Results No Known Results Summary Purpose eClinicalWorks Submission
--- OUTSIDE RECORDS SUMMARY | 2018-10-16 10:04 | XMS REPORT ---
Author Nigel Rea [facility] eClinicalWorks Address Unknown Phone Unavailable Care Team Providers Care Linemarker Name Role Phone Nigel Gonzalez CP Unavailable Encounters Encounter Location Date VERIFY FOR [...]
--- OUTSIDE RECORDS SUMMARY | 2018-10-16 10:04 | XMS REPORT ---
Author Nigel Rea [facility] eClinicalWorks Address Unknown Phone Unavailable Care Team Providers Care Sleeve Sewer Name Role Phone Nigel Gonzalez CP Unavailable Allergies, Adverse Reactions, Alerts Substance Reaction Event Type N.K.D.A. Info Not Available Non Drug Allergy Encounters Encounter Location Date RIGHT SHOULDER INJ Nigel Gonzalez MD Aug 08, 2016 VERIFY FOR 100 DEPO Nigel Gonzalez [...] Start Date End Date Status Dosage Aspirin [facility] [address]-82 81 MG Orally Once a day Active 1 tablet Cymbalta [facility] [address]-68 60 MG Orally Once a day Active 1 capsule Tamsulosin HCl [facility] [address]-66 0.4 MG Orally Active as directed Xarelto [facility] [address]-66 20 MG Orally Once a day Active 1 tablet with food Tylenol Arthritis Pain [facility] [address]-56 650 MG Orally PRN Active 2 tablets as needed Acetaminophen-Codeine [facility] [address]-75 300-60 MG Orally every 6 hrs prn for pain Active 1 tablet as needed Valsartan-Hydrochlorothiazide [facility] [address]-75 160-12.5 MG Orally Once a day Active 1 tablet Social History Social History Element Qualifiers Date Reported Diet: no. Aug 08, 2016 Tobacco Use: . Are you a:: former smoker , How long has it been since you last smoked?: > 10 years Aug 08, 2016 Marital Status: . Aug 08, 2016 Caffeine: yes. 1-5, cups/day Aug 08, 2016 Exercise: no. Aug 08, 2016 Alcohol: socially. 2-3 week Aug 08, 2016 Occupation: . retired Aug 08, 2016 Vital Signs Date/Time: Aug 08, 2016 Weight 225 lbs Height 68 in Temperature 97.6 F Cardiac Monitoring Heart Rate 72 /min Blood Pressure Diastolic 72 mm Hg Blood Pressure Systolic 132 mm Hg Summary Purpose eClinicalWorks Submission
--- NOTE | 2018-10-17 12:31 | Diagnostic Imaging Report ---
Right knee radiographs-2 views History: Postoperative radiographs. Findings: Status post total right knee arthroplasty with prosthetic components in anatomic alignment. Overlying subcutaneous emphysema and surgical skin yina are present. No acute osseous abnormality. IMPRESSION: Status post right knee replacement in anatomic position. Signed by: Dr. Jane Vallejo MD on 10/17/2018 12:27 PM
== END ==
LOC: RAD 05:00 → OR 10-16 10:00 → EDSTATUS 10-17 12:30
PROVIDERS: ATTEND Specialist
DX: Z01.818 Encounter for other preprocedural examination (principal); M17.11 Unilateral primary osteoarthritis, right knee; Z53.8 Procedure and treatment not carried out for other reasons
CPT/HCPCS: 36415; 71046; 80048; 81003; 85025; 86850; 86900; 86920; J0690

== ENCOUNTER 2018-10-17 06:42 | Observation (INO) | payer MEDICARE ==
[~2018-10-17] VITALS: Ht 170.2 cm; Wt 110.0 kg
[~2018-10-17 06:42] MED LIST changes: -ACETAMINOPHEN 1000 MG/100 ML IV PRN; -BACITRACIN 50,000 UNIT VIAL ONE; -CEFAZOLIN SOD 1 GM/NS 50ML 50 ML IV SCH; -CEFAZOLIN SOD 2 GM/D5W 50ML 50 ML IV ONE; -DIPHENHYDRAMINE HCL INJ 50 MG/ML VIAL IM/IV PRN; -HYDROMORPHONE 0.2MG/ML-SOD CHL 30ML PCA SYRINGE IV PRN; -NALOXONE HCL INJ 0.4 MG/ML AMP IV PRN; -ONDANSETRON HCL INJ 2MG/ML 2ML 2 MG/ML VIAL IV PRN; -RIVAROXABAN 10 MG TABLET PO SCH; -SODIUM CHLORIDE 0.9% 1000ML 1,000 ML IV SCH
[2018-10-17] MEDS ORDERED: BACITRACIN 50,000 UNIT VIAL ONE (06:46)
[2018-10-17] MEDS ORDERED: CEFAZOLIN SOD 2 GM/D5W 50ML 50 ML IV ONE (07:57)
[2018-10-17] MEDS ORDERED: HYDROMORPHONE 2MG/ML 2 MG/ML ML ONE (12:01)
[2018-10-17] MEDS ORDERED: ACETAMINOPHEN 1000 MG/100 ML IV PRN (13:30)
[2018-10-17] MEDS ORDERED: HYDROMORPHONE 0.2MG/ML-SOD CHL 30ML PCA SYRINGE IV PRN ×2 (13:30→19:15)
[2018-10-17] MEDS ORDERED: DIPHENHYDRAMINE HCL INJ 50 MG/ML VIAL IM/IV PRN (13:30)
[2018-10-17] MEDS ORDERED: NALOXONE HCL INJ 0.4 MG/ML AMP IV PRN ×2 (13:30→13:45)
[2018-10-17] MEDS ORDERED: ONDANSETRON HCL INJ 2MG/ML 2ML 2 MG/ML VIAL IV PRN (13:30)
[2018-10-17] MEDS ORDERED: CEFAZOLIN SOD 1 GM/NS 50ML 50 ML IV SCH (14:00)
--- NOTE | 2018-10-17 14:30 | NUR ---
received to rm aaox3 no distress noted, ivf infusing to right hand no ss of infiltration noted,learning and development manager on demand, dsg to right leg intact, foot pumps applied, oriented to rm, updated on poc voiced understanding, call light in reach will continue to monitor
[2018-10-17 14:48] VITALS: BP 136/79
[2018-10-17 16:41] VITALS: BP 136/79
[2018-10-17] MEDS: CEFAZOLIN SOD 1 GM/NS 50ML 50 ML IV SCH (18:00)
[2018-10-17] MEDS ORDERED: LIDOCAINE 2% /EPINEPHRINE 20 ML SDV INJ ONE (18:04)
[2018-10-17] MEDS ORDERED: ROPIVACAINE 0.5% 5 MG/ML 30 ML SDV ONE (18:04)
[2018-10-17] MEDS ORDERED: DEXAMETHASONE SOD PHOS INJ 4 MG/ML VIAL ONE (18:18)
[2018-10-17] MEDS ORDERED: KETOROLAC TROMETHAMINE 30 MG/ML VIAL ONE (18:18)
[2018-10-17] MEDS ORDERED: ONDANSETRON HCL INJ 2MG/ML 2ML 2 MG/ML VIAL ONE (18:18)
[2018-10-17] MEDS ORDERED: PROPOFOL IV EMULSION 10 MG/ML 20 ML VIAL ONE (18:18)
[2018-10-17] MEDS ORDERED: LIDOCAINE HCL 2% LOCAL INJ 5 ML SDV VIAL INJ ONE (18:18)
[2018-10-17] MEDS ORDERED: SEVOFLURANE INHAL SOLN 250 ML PEN BTL ONE (18:18)
[2018-10-17] MEDS ORDERED: EPHEDRINE SULFATE INJ 50 MG/10 ML SYR ONE (18:18)
[2018-10-17] MEDS ORDERED: FENTANYL CITRATE/PF 100MCG/2 ML INJ ONE (18:58)
[2018-10-17] MEDS ORDERED: MIDAZOLAM HCL 2 MG/2 ML VIAL ONE (18:58)
--- NOTE | 2018-10-17 19:09 | NUR ---
BEDSIDE SHIFT REPORT RECEIVED FROM Katelin ALICIA RN. RECEIVED PT LAYING SEMI FOWLERS IN BED, AAOX3, RR EVEN AND NON-LABORED, ON RA. NO S/SX OF DISTRESS NOTED. COMMUNITY ADVOCATE BUTTON WITHIN REACH. LEFT PT LAYING SEMI FOWLERS IN BED, BED IN LOW LOCKED POSITION, SIDE RAILS UPX2, CALL LIGHT AND PHONE WITHIN REACH.
--- NOTE | 2018-10-17 19:13 | NUR ---
spoke with dr murguia re: clarification of shot blaster max dose, informed nurse to keep 0.8mg/hr
[2018-10-17] MEDS: SODIUM CHLORIDE 0.9% 1000ML 1,000 ML IV SCH ×2 (19:17→21:45)
[2018-10-17 20:00] VITALS: BP 121/69
[2018-10-17 21:41] VITALS: BP 121/69
[2018-10-18] VITALS: BP 133/72
[2018-10-18] MEDS: CEFAZOLIN SOD 1 GM/NS 50ML 50 ML IV SCH ×2 (00:25→08:52)
[2018-10-18 04:00] VITALS: BP 128/63
[2018-10-18] MEDS: SODIUM CHLORIDE 0.9% 1000ML 1,000 ML IV SCH ×2 (05:45→13:45)
[2018-10-18 06:02] LABS: BASOPHILS % 0.2 % (0.0-1.0); EOSINOPHILS # (AUTO) 0.2 (0.0-0.4); EOSINOPHILS % 1.5 % (0.0-6.0); HEMATOCRIT 38.9 % (38.2-49.6); HEMOGLOBIN 13.1 g/dL (14.0-18.0); LYMPHOCYTES % 17.3 % (18.0-39.1); MEAN CORPUSCULAR HEMOGLOBIN 30.8 pg (28-32); MEAN CORPUSCULAR HGB CONC 33.7 g/dL (31-35); MEAN CORPUSCULAR VOLUME 91.5 fL (81-99); MONOCYTES # (AUTO) 1.1 (0.2-0.8); MONOCYTES % 9.7 % (4.4-11.3); NEUTROPHILS # (AUTO) 8.3 (2.1-6.9); NEUTROPHILS % 70.9 % (38.7-80.0); PLATELET COUNT 212 x10e3/uL (140-360); RED BLOOD COUNT 4.25 x10e6/uL (4.3-5.7); RED CELL DISTRIBUTION WIDTH 14.5 % (11.7-14.4)
[2018-10-18] MEDS ORDERED: PANTOPRAZOLE SOD 40 MG TABEC PO SCH (07:30)
[2018-10-18 08:06] VITALS: BP 145/85
[2018-10-18] MEDS ORDERED: VALSARTAN 80 MG TAB PO SCH (09:00)
[2018-10-18] MEDS ORDERED: VALSARTAN 160 MG TAB PO SCH (09:00)
[2018-10-18] MEDS ORDERED: DULOXETINE HCL 30 MG DELAYED RELEASE PO SCH (09:00)
[2018-10-18] MEDS ORDERED: TAMSULOSIN HCL 0.4 MG CAP PO SCH (09:00)
[2018-10-18] MEDS ORDERED: NON-FORMULARY MEDICATION (Levocetirizine Dihydrochloride 5 MG) PO SCH (09:00)
[2018-10-18] MEDS ORDERED: LORATADINE 10 MG TAB PO SCH (09:00)
--- NOTE | 2018-10-18 10:40 | NUR ---
CM SPOKE TO PATIENT AND PHYSICAL THERAPY AT BEDSIDE. PATIENT NEEDS ROLLING WALKER FOR HOME PER PHYSICAL THERAPY. PATIENT STATES HE DOES NOT HAVE ROLLING WALKER AT HOME OR A MOBILITY DEVICE. PATIENT POST OP TOTAL KNEE. RN NOTIFIED AND PLACED ORDER FOR ROLLING WALKER. PATIENT GIVEN CHOICES OF MEDICAL SUPPLY STORES FOR ROLLING WALKER. PATIENT CHOSE TO USE [facility] SUPPLIED THROUGH HOSPITAL. CHOICE LETTER SIGNED AND PLACED IN CHART. ROLLING WALKER DELIVERED AT BEDSIDE. [facility] FORM STAPLED TO ORDER AND FACESHEET. PENDING SIGNATURE FROM .
--- NOTE | 2018-10-18 11:01 | Consultation ---
DATE OF CONSULTATION: REASON FOR CONSULTATION: Postoperative medical management. HISTORY OF PRESENT ILLNESS: The patient is a 73-year-old gentleman, who is status post total knee arthroplasty on the right for end-stage osteoarthritis. He is doing well postoperatively with minimal pain. REVIEW OF SYSTEMS: Denies any chest pain, fever, chills, nausea, vomiting, headache, or shortness of breath. PAST MEDICAL HISTORY: Significant for osteoarthritis, DVT in the past, hypertension, BPH, and reflux disease. MEDICATIONS: See MAR. ALLERGIES: NONE. SOCIAL HISTORY: Nonsmoker, nondrinker. FAMILY HISTORY: hypertension. PHYSICAL EXAMINATION: VITAL SIGNS: Temperature 97.4, pulse 74, blood pressure 133/72, and sats are 95% on room air. GENERAL: No apparent distress. NECK: Supple. CARDIOVASCULAR: Regular rate and rhythm. LUNGS: Clear to auscultation bilaterally. ABDOMEN: Good bowel sounds. Soft and nontender. EXTREMITIES: No clubbing or cyanosis. Bandage is dry. NEUROLOGIC: Nonfocal. ASSESSMENT AND PLAN: 1. Anemia. We will check a CBC. 2. Right knee pain. We will continue with physical therapy and pain control. 3. Reflux disease. We will continue with his medications. 4. Benign prostatic hypertrophy. We will continue with his Flomax. 5. Hypertension. We will continue with his blood pressure medicine. 6. History of deep vein thrombosis. We will continue with his Xarelto postoperatively. Please see hospital chart for full details. MD MALGORZATA Gould/RICARDO /[id number]
[2018-10-18 11:47] VITALS: BP 145/85
[2018-10-18 12:06] VITALS: BP 152/71
--- NOTE | 2018-10-18 13:11 | NUR ---
CM SPOKE TO PATIENT REGARDING [facility] ORDER. PATIENT INFORMED OF [facility] AND PROOVIDERS THAT SERVICE HIS AREA. PATIENT CHOSE [facility]. CHOICE LETTER SIGNED AND PLACED IN CHART. CLINICAL SENT TO [facility]. PATIENT ACCEPTED AND WILL BEGIN SERVICES DAY AFTER DISCHARGE. [facility] [address] (P) (f) [phone]
[2018-10-18] MEDS ORDERED: RIVAROXABAN 10 MG TABLET PO SCH (17:00)
--- NOTE | 2018-10-22 16:28 | Operative Report ---
DATE OF PROCEDURE: 10/17/2018 SURGEON: Kit Abdi MD PREOPERATIVE DIAGNOSIS: End-stage arthritis, right knee. POSTOPERATIVE DIAGNOSIS: End-stage arthritis, right knee. OPERATION/PROCEDURE PERFORMED: The patient underwent a right total knee arthroplasty using the Jimenez Next Generation knee system with a size F femoral component, a size 6 tibial component, a 14 mm tibial insert, and a 35 mm patella button. ARCHITECTURAL PROJECT CAPTAIN: Bree Roblero. ANESTHESIA: General endotracheal intubation anesthesia as well as regional block. IV FLUIDS: As per the Anesthesia record. BLOOD LOSS: Approximately 50 mL. COMPLICATIONS: None. BRIEF DISCUSSION OF THE PATIENT'S OPERATIVE PROCEDURE: Mr. John was taken to the operating room and placed in the supine position on the operating table. Following induction of general anesthesia as well as endotracheal intubation, the patient's right lower extremity was examined under anesthesia. He was found to have a normal-appearing knee. The patient's knee motion was well maintained. There was patellofemoral crepitus. He had excellent pulses distally. The patient's right lower extremity was prepped and draped in the standard surgical fashion. The case was begun by creating an incision along the longitudinal axis of the knee centered over the knee joint. This incision was carried through skin and subcutaneous tissues to the level of the extensor mechanism. Full-thickness skin flaps were elevated both medially and laterally. The extensor mechanism was then incised along the medial border of the quadriceps tendon and extending down to the level of the proximal tibia. The patella was everted laterally and the fat pad was removed. The anterior horns of the medial and lateral meniscus were resected. Osteophytes were removed from the femur, tibia, and patella. The knee was placed in flexion, and the anterior and posterior cruciate ligaments were sacrificed at this time. Retractors were placed in the knee to protect vital soft tissues throughout the case. The 5-in-1 cutting block was then affixed to the femur and the femoral cuts were performed. The intercondylar notch cutting block was affixed to the femur and the intercondylar notch cut was performed. The finishing block was then affixed to the femur and the posterior chamfer cuts were performed at this time. Attention was then turned to the tibia. The external tibial alignment guide was affixed to the tibia and adjusted appropriately. Retractor was placed in the posterior knee to protect the posterior neurovascular bundles. The tibial cut was then performed. The keel cutting device was then placed on the proximal tibia and a keel cut was performed. Trial femoral and tibial components were inserted in the knee joint and the soft tissues were balanced. A size 14 tibial trial was then placed and the tibial tray and the knee was reduced and placed in motion and found to be stable. The patella was then reamed and an appropriate size patella button was affixed to undersurface of the patella. The patellofemoral joint was reduced and the knee was placed through range of motion and the patella was found to track appropriately. All trial components were removed and the femoral, tibial, and patella surfaces were prepared for cementation. Cement was mixed on the back table. The femoral, tibial, and patella components were then cemented into place. Once the cement had cured, the tibial insert was inserted into the tibial tray. The knee was again reduced and placed in range of motion and found to be stable. The tourniquet was deflated and hemostasis was obtained prior to closing the wound. The extensor mechanism was repaired with nonabsorbable sutures. The remaining soft tissues were repaired in a multilayered fashion. Sterile dressings were applied, and the patient was then awakened and taken to the Postanesthesia Care Unit in stable condition. MD OMEGA Montaño/RICARDO /[id number]
== END 2018-10-18 14:05 | disposition home health service (06) ==
LOC: OR 06:42 → PACU V 13:36 → MED/SURG 14:46
PROVIDERS: ADMIT Specialist; ATTEND Specialist
DX: M17.11 Unilateral primary osteoarthritis, right knee (principal); I10 Essential (primary) hypertension; I20.8 Other forms of angina pectoris; K21.9 Gastro-esophageal reflux disease without esophagitis; Z95.828 Presence of other vascular implants and grafts; N40.0 Benign prostatic hyperplasia without lower urinary tract symptoms; D64.9 Anemia, unspecified; Z86.718 Personal history of other venous thrombosis and embolism; Z79.01 Long term (current) use of anticoagulants
CPT/HCPCS: 27447; 36415; 85025; 97116 ×2; 97139; 97161; 97530; C1713; G0378 ×2; J0131; J0690 ×3; J1100; J1170; J1885; J2001 ×2; J2250; J2405; J2704; J2795; J7030; S0164

== ENCOUNTER → 2020-06-29 | Outpatient (CLI) | payer MEDICARE ==
[~2020-06-29] MED LIST changes: +TYLENOL WITH C1 EACH PO; +VALSARTAN-HCTZ1 EAC1 PO
== END ==
LOC: RAD 12:15
PROVIDERS: ATTEND Family Medicine
DX: Z01.818 Encounter for other preprocedural examination (principal); S83.207A Unspecified tear of unspecified meniscus, current injury, left knee, initial encounter
CPT/HCPCS: 71046; 93005